=== PATIENT | male | born 1975 | race Caucasian/White ===

== ENCOUNTER 2025-06-04 13:53 | Emergency (ER) | payer BC ==
[2025-06-04] MEDS ORDERED: SMZ./TMP. 800/160 MG TABLET ONE (15:30)
[2025-06-04] MEDS ORDERED: LIDOCAINE 1% MPF 5 ML VIAL ONE (15:33)
--- NOTE | 2025-06-04 15:45 | EDPHYS ---
Physician Documentation [facility] Name: Rakesh Covarrubias Age: 50 yrs Sex: Male : 1975 Arrival Date: 06/04/2025 Time: 13:53 Bed 25 Private MD: ED Physician Von Villagomez HPI: 06/04 14:07 This 50 yrs old Male presents to ER via Unassigned with complaints of Abscess. kb 14:07 Pt is a 50 year old male who presents for abscess to right lateral chest that started 4 kb days ago. States it has gotten more painful, now painful to raise arm. States he has had this a few times in the past in the same spot and had to have it lanced. Denies fever. . Historical: - Allergies: 14:19 No Known Allergies; dd2 - PMHx: 14:19 Diabetes mellitus; KIDNEY CA; dd2 - PSHx: 14:19 LT KIDNEY REMOVED; dd2 - Immunization history:: Adult Immunizations unknown. - Infectious Disease History:: Denies. - Social history:: Smoking status: Patient reports the use of cigarette tobacco products, smokes one pack cigarettes per day. ROS: 14:07 Constitutional: As per HPI kb Exam: 14:07 Constitutional: This is a well developed, well nourished patient who is awake, alert, kb and in no acute distress. Head/Face: Normocephalic, atraumatic. ENT: Moist Mucous membranes Respiratory: Respirations even and unlabored. No increased work of breathing. Talking in full sentences MS/ Extremity: Pulses equal, no cyanosis. Neurovascular intact. Full, normal range of motion. Neuro: Awake and alert, GCS 15, oriented to person, place, time, and situation. 14:07 Skin: abscess, that is moderate sized, of the chest, just below lateral aspect of right breast, with fluctuance, that is mild, Vital Signs: 14:17 BP 119 / 88; Pulse 109; Resp 16; Temp 98.6; Pulse Ox 98% on R/A; Weight 131.54 kg; dd2 Height 5 ft. 11 in. ; Pain 6/10; 15:59 BP 121 / 84; Pulse 90; Resp 20; Temp 98.2; Pulse Ox 100% on R/A; kj2 14:17 Body Mass Index 40.45 (131.54 kg, 180.34 cm) dd2 14:17 Pain Scale: Adult dd2 Procedures: 15:43 I \T\ D: Incision and drainage was performed for an abscess of the right chest Prepped kb with Betadine, Anesthetized with 2 ml's 1% Lidocaine. Incised with #11 blade. Drained large amount purulent fluid. Dressing: sterile 4x4 gauze, the patient tolerated the procedure well. MDM: 13:56 Medical Screening Exam initiated kb 14:07 Differential diagnosis: abscess, allergic reaction, cellulitis, insect bite. Data kb reviewed: vital signs, nurses notes. 15:44 Counseling: I had a detailed discussion with the patient and/or guardian regarding the kb historical points, exam findings, and any diagnostic results supporting the discharge/admit diagnosis, the need for outpatient follow up, a general surgeon, to return to the emergency department if symptoms worsen or persist or if there are any questions or concerns that arise at home. 06/04 14:07 Order name: I\T\D Setup; Complete Time: 15:46 kb Administered Medications: 15:31 Drug: Trimethoprim-Sulfamethoxazole PO (160 mg-800 mg (DS) 1 tablet PO once Route: PO; kj2 15:51 Follow up: Response: No adverse reaction kj2 15:51 Drug: Lidocaine Infiltration (1 %) 1 vials 5 ml Infiltration once; to bedside {Note: kj2 administered by provider.} Volume: 5 ml; Route: Infiltration; Disposition Summary: 06/04/25 15:44 Discharge Ordered Notes: Location: Home kb Condition: Stable kb Diagnosis - Cutaneous abscess of chest wall kb Followup: kb - With: Emergency Department - When: As needed - Reason: Worsening of condition Followup: kb - With: Private Physician - When: 2 - 3 days - Reason: Recheck today's complaints, Continuance of care, Re-evaluation by your physician Discharge Instructions: - Discharge Summary Sheet kb - Skin Abscess, [id number] kb - Incision and Drainage, Care After kb Forms: - Medication Reconciliation Form kb - Antibiotic Education kb - Prescription Opioid Use kb - Patient Portal Instructions kb - Leadership Thank You Letter kb Prescriptions: - Bactrim DS 800-160 mg Oral Tablet - take 1 tablet ORAL route every 12 hours for 10 days; 20 tablet; Refills: 0, kb Product Selection Permitted Signatures: Jill Phelps FNP-C FNP-Ling Vaughn, RN RN kj2 LEE VERDIN, RN RN dd2
--- NOTE | 2025-06-04 15:45 | ER ---
Nurse's Notes [facility] Name: Rakesh Covarrubias Age: 50 yrs Sex: Male : 1975 Arrival Date: 06/04/2025 Time: 13:53 Bed 25 Private MD: Diagnosis: Cutaneous abscess of chest wall Presentation: 06/04 14:17 Chief complaint: Patient states: PAINFUL RAISED ABSCESS ON RT SIDE, UNDER BREAST THAT dd2 APPEARED ON WEDNESDAY. PT DENIES DRAINAGE. Coronavirus screen: At this time, the client does not indicate any symptoms associated with coronavirus-19. Ebola Screen: No symptoms or risks identified at this time. Initial Sepsis Screen: Does the patient meet any 2 criteria? No. Patient's initial sepsis screen is negative. Does the patient have a suspected source of infection? No. Patient's initial sepsis screen is negative. Risk Assessment: Do you want to hurt yourself or someone else? Patient reports no desire to harm self or others. Onset of symptoms was June 01, 2025. 14:17 Method Of Arrival: Ambulatory dd2 14:17 Acuity: BI 3 dd2 Triage Assessment: 14:19 General: Appears in no apparent distress. uncomfortable, Behavior is calm, cooperative, dd2 appropriate for age. Pain: Complains of pain in right lateral anterior chest. Derm: Abscess located on right lateral anterior chest. 14:19 Derm: Abscess is quarter sized. dd2 Historical: - Allergies: 14:19 No Known Allergies; dd2 - PMHx: 14:19 Diabetes mellitus; KIDNEY CA; dd2 - PSHx: 14:19 LT KIDNEY REMOVED; dd2 - Immunization history:: Adult Immunizations unknown. - Infectious Disease History:: Denies. - Social history:: Smoking status: Patient reports the use of cigarette tobacco products, smokes one pack cigarettes per day. Screenin:30 [facility] ED Fall Risk Assessment (Adult) History of falling in the last 3 months, kj2 including since admission No falls in past 3 months (0 pts) Confusion or Disorientation No (0 pts) Intoxicated or Sedated No (0 pts) Impaired Gait No (0 pts) Mobility Assist Device Used No (0 pt) Altered Elimination No (0 pt) Score/Fall Risk Level 0 - 2 = Low Risk Maintained a safe environment, Hourly rounding (assess needs \T\ fall precautionary measures) done. Abuse screen: Denies threats or abuse. Denies injuries from another. Nutritional screening: No deficits noted. Tuberculosis screening: No symptoms or risk factors identified. Assessment: 15:30 General: Appears in no apparent distress. Behavior is cooperative. Pain: Complains of kj2 pain in chest and right lateral anterior chest Pain currently is 7 out of 10 on a pain scale. Neuro: Level of Consciousness is awake, alert, Oriented to person, place, time, situation. Cardiovascular: Patient's skin is warm and dry. Respiratory: Airway is patent Respiratory effort is even, unlabored. GI: No signs and/or symptoms were reported involving the gastrointestinal system. : No signs and/or symptoms were reported regarding the genitourinary system. Vital Signs: 14:17 BP 119 / 88; Pulse 109; Resp 16; Temp 98.6; Pulse Ox 98% on R/A; Weight 131.54 kg; dd2 Height 5 ft. 11 in. ; Pain 6/10; 15:59 BP 121 / 84; Pulse 90; Resp 20; Temp 98.2; Pulse Ox 100% on R/A; kj2 14:17 Body Mass Index 40.45 (131.54 kg, 180.34 cm) dd2 14:17 Pain Scale: Adult dd2 ED Course: 13:56 Patient arrived in ED. al6 13:56 Jill Phelps FNP-C is [facility]. kb 13:56 Von Villagomez MD is Attending Physician. kb 14:19 Triage completed. dd2 14:19 Arm band placed on left wrist. dd2 15:24 Ling Langston RN is Primary Nurse. kj2 15:46 Patient has correct armband on for positive identification. Bed in low position. Call kj2 light in reach. Provided Education on: call light. 15:50 Assist provider with I \T\ D: of an abscess on right Set up I\T\D tray. Patient did not kj 2 have IV access during this emergency room visit. Administered Medications: 15:31 Drug: Trimethoprim-Sulfamethoxazole PO (160 mg-800 mg (DS) 1 tablet PO once Route: PO; kj2 15:51 Follow up: Response: No adverse reaction kj2 15:51 Drug: Lidocaine Infiltration (1 %) 1 vials 5 ml Infiltration once; to bedside {Note: kj2 administered by provider.} Volume: 5 ml; Route: Infiltration; Medication: 15:51 VIS not applicable for this client. kj2 Outcome: 15:44 Discharge ordered by . kb 15:50 Discharged to home ambulatory, kj2 15:50 Condition: stable 15:50 Discharge instructions given to patient, Instructed on discharge instructions, follow up and referral plans. Demonstrated understanding of instructions, follow-up care, 16:01 Patient left the ED. kj2 Signatures: Jill Phelps, ADELINE BELLE-Ling Vaughn, RN RN kj2 LEE VERDIN RN RN dd2 Nury Ritchie al6
[2025-06-04 20:19] VITALS: BP 121/84; TEMP 98.2; O2SAT 100
== END 2025-06-04 16:01 | disposition home or self-care (01) ==
LOC: ER 13:53
PROC: 0H95XZZ Drainage of Chest Skin, External Approach (ICD-10-PCS; principal; 2025-06-04)
DX: L02.213 Cutaneous abscess of chest wall (principal)
CPT/HCPCS: 99283; 10060; J2003